=== PATIENT | male | born 1965 | race Caucasian/White ===

== ENCOUNTER → 2025-02-12 | Outpatient (CLI) | payer OTHER | LOC: M RAD 09:45 | PROVIDERS: ATTEND Nurse Practitioner | DX: R79.89 Other specified abnormal findings of blood chemistry (principal) ==

== ENCOUNTER 2025-04-09 14:21 | Observation (INO) | payer OTHER ==
[~2025-04-09] VITALS: Ht 165.1 cm; Wt 60.0 kg
[2025-04-09] MEDS: ONDANSETRON 4MG/2ML VIAL IV ONE (15:11)
[2025-04-09] MEDS: NS (Normal Saline) 0.9% 1,000 ML IV SCH ×2 (15:11→18:18)
[2025-04-09 15:26] LABS: BASO # 0.0 10^3/uL (0.0-0.2); BASO % 0.3 % (0.0-1.0); EOS # 0.0 10^3/uL (0.0-0.5); EOS % 0.4 % (0.0-3.0); LYMPH # 0.5 10^3/uL (1.5-5.0); LYMPH % 5.0 % (24.0-44.0); MONO # 0.3 10^3/uL (0.0-0.8); MONO % 3.6 % (2.0-8.0); NEUTROPHILS # 8.4 10^3/uL (1.5-8.5); NEUTROPHILS % 90.2 % (36.0-66.0); PLATELET COUNT, AUTOMATED 229 10^3/uL (150-450)
[2025-04-09 15:40] LABS: ALT/SGPT 52 U/L (7.0-40); AST/SGOT 56 U/L (<34); CALCIUM LEVEL 9.1 MG/DL (8.5-10.1); CARBON DIOXIDE LEVEL 20 MMOL/L (20-31); CHLORIDE LEVEL 90 MMOL/L (98-107); CREATININE FOR GFR 0.94 MG/DL (0.70-1.30); GLOMERULAR FILTRATION RATE > 90.0 (>56); POTASSIUM SERUM 3.8 MMOL/L (3.5-5.1); SODIUM LEVEL 125 MMOL/L (136-145)
[2025-04-09 15:51] LABS: OSMOLALITY SERUM 262 MOSM/KG (275-295)
[2025-04-09] MEDS ORDERED: ISOVUE-370 76% 100 ML VIAL As Ordered ONE (15:52)
[2025-04-09 16:06] LABS: FREE T4 1.20 NG/DL (0.89-1.76)
[2025-04-09 17:08] LABS: SODIUM,RANDOM URINE 77.0 MMOL/L
[2025-04-09] MEDS ORDERED: MOM 30 ML SUSPENSION UDC PO PRN (17:40)
[2025-04-09] MEDS ORDERED: ACETAMINOPHEN 325 MG TAB PO PRN (17:40)
[2025-04-09] MEDS ORDERED: ONDANSETRON 4MG/2ML VIAL IV PRN (17:50)
[2025-04-09 18:06] LABS: APPEARANCE, URINE CLEAR (CLEAR); BACTERIA, URINE AUTO NEGATIVE (NEGATIVE); BILIRUBIN, URINE AUTO NEGATIVE (NEGATIVE); BLOOD, URINE BLOOD NEGATIVE (NEGATIVE); GLUCOSE, URINE (UA) AUTO NEGATIVE (NEGATIVE); KETONE, URINE AUTO TRACE mg/dL (NEGATIVE); LEUKOCYTE ESTERASE, URINE AUTO NEGATIVE (NEGATIVE); MUCUS, URINE SMALL (NEGATIVE); NITRITE, URINE AUTO NEGATIVE (NEGATIVE); PROTEIN, URINE AUTO NEGATIVE (NEGATIVE); RBC, URINE AUTO 1 /HPF (0-3); SPECIFIC GRAVITY URINE AUTO 1.021 (1.002-1.035); SQUAMOUS EPITHELIAL CELL UR AU 0 /HPF (0-6); UROBILINOGEN, URINE AUTO 2.0 mg/dL (0.0-2.0); WBC, URINE AUTO 1 /HPF (0-3)
[2025-04-09] MEDS ORDERED: CYCL-707 PO (18:25)
[2025-04-09] MEDS ORDERED: PANT20TA6 PO (18:25)
[2025-04-09] MEDS ORDERED: ONDA-282 PO (18:25)
[2025-04-09] MEDS ORDERED: AMOX875T2 (18:25)
[2025-04-09] MEDS ORDERED: ATOR1TAB19 PO (18:25)
[2025-04-09] MEDS ORDERED: ATEN50TA2 PO (18:25)
[2025-04-09] MEDS ORDERED: LEVOTAB10 PO (18:25)
[2025-04-09] MEDS ORDERED: HOME MED LIST COMPLETE! XX SCH (18:30)
[2025-04-09] MEDS ORDERED: LEVALBUTEROL 1.25 MG 0.5ML CONCENTRATE NEB INH PRN (18:40)
[2025-04-09] MEDS: DOCUSATE SODIUM 100 MG CAPSULE PO SCH (21:00)
[2025-04-09 21:05] VITALS: BP 148/100; TEMP 97.7; O2SAT 98
[2025-04-09 21:29] LABS: INR 1.03
[2025-04-09 21:30] LABS: CALCIUM LEVEL 7.8 MG/DL (8.5-10.1); CARBON DIOXIDE LEVEL 18 MMOL/L (20-31); CHLORIDE LEVEL 95 MMOL/L (98-107); CREATININE FOR GFR 0.89 MG/DL (0.70-1.30); GLOMERULAR FILTRATION RATE > 90.0 (>56); POTASSIUM SERUM 3.9 MMOL/L (3.5-5.1); SODIUM LEVEL 127 MMOL/L (136-145)
[2025-04-09] MEDS: THIAMINE 100 MG TAB PO SCH (21:32)
[2025-04-09 23:52] VITALS: BP 136/81; TEMP 97.5; O2SAT 95
[2025-04-10 02:05] LABS: CALCIUM LEVEL 8.2 MG/DL (8.5-10.1); CARBON DIOXIDE LEVEL 22 MMOL/L (20-31); CHLORIDE LEVEL 93 MMOL/L (98-107); CREATININE FOR GFR 0.94 MG/DL (0.70-1.30); GLOMERULAR FILTRATION RATE > 90.0 (>56); POTASSIUM SERUM 3.8 MMOL/L (3.5-5.1); SODIUM LEVEL 126 MMOL/L (136-145)
[2025-04-10 04:13] VITALS: BP 149/89; TEMP 98.3; O2SAT 99
[2025-04-10 06:01] LABS: BASO # 0.0 10^3/uL (0.0-0.2); BASO % 0.5 % (0.0-1.0); EOS # 0.1 10^3/uL (0.0-0.5); EOS % 2.3 % (0.0-3.0); LYMPH # 0.8 10^3/uL (1.5-5.0); LYMPH % 12.4 % (24.0-44.0); MONO # 0.3 10^3/uL (0.0-0.8); MONO % 5.3 % (2.0-8.0); NEUTROPHILS # 4.8 10^3/uL (1.5-8.5); NEUTROPHILS % 79.0 % (36.0-66.0); PLATELET COUNT, AUTOMATED 195 10^3/uL (150-450)
[2025-04-10 06:18] LABS: ALT/SGPT 35 U/L (7.0-40); AST/SGOT 36 U/L (<34); CALCIUM LEVEL 7.9 MG/DL (8.5-10.1); CARBON DIOXIDE LEVEL 22 MMOL/L (20-31); CHLORIDE LEVEL 95 MMOL/L (98-107); CREATININE FOR GFR 0.93 MG/DL (0.70-1.30); GLOMERULAR FILTRATION RATE > 90.0 (>56); MAGNESIUM LEVEL 1.4 MG/DL (1.8-2.4); POTASSIUM SERUM 4.1 MMOL/L (3.5-5.1); SODIUM LEVEL 129 MMOL/L (136-145)
[2025-04-10] MEDS: MAG SULF 1GM/100ML (MAG RUN) 1 GM in IV 1 EA IV SCH ×2 (06:33→08:00)
[2025-04-10 07:36] VITALS: BP 136/88; TEMP 97.1; O2SAT 98
[2025-04-10] MEDS: FOLIC ACID 1 MG TAB PO SCH (10:05)
[2025-04-10] MEDS: MULTIVITAMINS/MINERALS THERAP 1 TAB PO SCH (10:06)
[2025-04-10] MEDS: ASPIRIN 81 MG CHEWABLE TABLET PO SCH (10:06)
[2025-04-10] MEDS: ATORVASTATIN 10 MG TAB PO SCH (10:06)
[2025-04-10] MEDS: PANTOPRAZOLE 40MG VIAL IV SCH (10:07)
[2025-04-10] MEDS: ENOXAPARIN 40 MG/0.4 ML SYRINGE (J1650 PER 10MG) SC SCH (10:07)
[2025-04-10 11:27] VITALS: BP 141/96; TEMP 97.3; O2SAT 100
[2025-04-10 13:40] LABS: CALCIUM LEVEL 8.5 MG/DL (8.5-10.1); CARBON DIOXIDE LEVEL 23 MMOL/L (20-31); CHLORIDE LEVEL 92 MMOL/L (98-107); CREATININE FOR GFR 0.87 MG/DL (0.70-1.30); GLOMERULAR FILTRATION RATE > 90.0 (>56); POTASSIUM SERUM 3.9 MMOL/L (3.5-5.1); SODIUM LEVEL 125 MMOL/L (136-145)
[2025-04-10 18:01] LABS: SODIUM,RANDOM URINE 115.0 MMOL/L
[2025-04-10 18:36] LABS: CALCIUM LEVEL 8.6 MG/DL (8.5-10.1); CARBON DIOXIDE LEVEL 22 MMOL/L (20-31); CHLORIDE LEVEL 92 MMOL/L (98-107); CREATININE FOR GFR 0.86 MG/DL (0.70-1.30); GLOMERULAR FILTRATION RATE > 90.0 (>56); POTASSIUM SERUM 3.8 MMOL/L (3.5-5.1); SODIUM LEVEL 125 MMOL/L (136-145)
[2025-04-10 20:27] VITALS: BP 168/97; TEMP 97.3; O2SAT 100
[2025-04-11] VITALS: BP 162/96; TEMP 97.7; O2SAT 99
[2025-04-11 01:15] LABS: CALCIUM LEVEL 7.8 MG/DL (8.5-10.1); CARBON DIOXIDE LEVEL 25 MMOL/L (20-31); CHLORIDE LEVEL 96 MMOL/L (98-107); CREATININE FOR GFR 0.88 MG/DL (0.70-1.30); GLOMERULAR FILTRATION RATE > 90.0 (>56); POTASSIUM SERUM 3.9 MMOL/L (3.5-5.1); SODIUM LEVEL 129 MMOL/L (136-145)
[2025-04-11 04:00] VITALS: BP 138/86; TEMP 98.5; O2SAT 98
[2025-04-11 06:03] LABS: BASO # 0.0 10^3/uL (0.0-0.2); BASO % 0.7 % (0.0-1.0); EOS # 0.3 10^3/uL (0.0-0.5); EOS % 5.8 % (0.0-3.0); LYMPH # 1.1 10^3/uL (1.5-5.0); LYMPH % 26.2 % (24.0-44.0); MONO # 0.4 10^3/uL (0.0-0.8); MONO % 9.3 % (2.0-8.0); NEUTROPHILS # 2.5 10^3/uL (1.5-8.5); NEUTROPHILS % 57.5 % (36.0-66.0); PLATELET COUNT, AUTOMATED 202 10^3/uL (150-450)
[2025-04-11 06:15] LABS: ALT/SGPT 36 U/L (7.0-40); AST/SGOT 39 U/L (<34); CALCIUM LEVEL 8.0 MG/DL (8.5-10.1); CARBON DIOXIDE LEVEL 25 MMOL/L (20-31); CHLORIDE LEVEL 96 MMOL/L (98-107); CREATININE FOR GFR 0.89 MG/DL (0.70-1.30); GLOMERULAR FILTRATION RATE > 90.0 (>56); MAGNESIUM LEVEL 1.8 MG/DL (1.8-2.4); POTASSIUM SERUM 3.7 MMOL/L (3.5-5.1); SODIUM LEVEL 130 MMOL/L (136-145)
[2025-04-11 08:23] VITALS: BP 120/92; TEMP 98.1; O2SAT 97
[2025-04-11] MEDS: FUROSEMIDE 20 MG TAB PO SCH (10:07)
[2025-04-11] MEDS: SODIUM CHLORIDE 1 GM TAB PO SCH (10:07)
[2025-04-11 11:08] LABS: CALCIUM LEVEL 8.7 MG/DL (8.5-10.1); CARBON DIOXIDE LEVEL 25 MMOL/L (20-31); CHLORIDE LEVEL 91 MMOL/L (98-107); CREATININE FOR GFR 0.88 MG/DL (0.70-1.30); GLOMERULAR FILTRATION RATE > 90.0 (>56); POTASSIUM SERUM 3.9 MMOL/L (3.5-5.1); SODIUM LEVEL 126 MMOL/L (136-145)
[2025-04-11 12:39] VITALS: BP 128/89; TEMP 98.5; O2SAT 97
[2025-04-11 15:40] LABS: CALCIUM LEVEL 8.7 MG/DL (8.5-10.1); CARBON DIOXIDE LEVEL 25 MMOL/L (20-31); CHLORIDE LEVEL 93 MMOL/L (98-107); CREATININE FOR GFR 0.90 MG/DL (0.70-1.30); GLOMERULAR FILTRATION RATE > 90.0 (>56); POTASSIUM SERUM 4.1 MMOL/L (3.5-5.1); SODIUM LEVEL 127 MMOL/L (136-145)
[2025-04-11 16:38] VITALS: TEMP 98.3; O2SAT 97
[2025-04-11 19:58] VITALS: BP 145/88; TEMP 97.1; O2SAT 100
[2025-04-11] MEDS: CYCLOBENZAPRINE 10 MG TABLET PO PRN (20:09)
[2025-04-12 00:24] VITALS: BP 149/86; TEMP 98.1; O2SAT 99
[2025-04-12 03:50] VITALS: BP 130/81; TEMP 97.4; O2SAT 99
[2025-04-12 05:56] LABS: BASO # 0.0 10^3/uL (0.0-0.2); BASO % 1.0 % (0.0-1.0); EOS # 0.2 10^3/uL (0.0-0.5); EOS % 5.7 % (0.0-3.0); LYMPH # 1.3 10^3/uL (1.5-5.0); LYMPH % 32.6 % (24.0-44.0); MONO # 0.5 10^3/uL (0.0-0.8); MONO % 13.2 % (2.0-8.0); NEUTROPHILS # 1.8 10^3/uL (1.5-8.5); NEUTROPHILS % 47.2 % (36.0-66.0); PLATELET COUNT, AUTOMATED 230 10^3/uL (150-450)
[2025-04-12 06:31] LABS: ALT/SGPT 41 U/L (7.0-40); AST/SGOT 48 U/L (<34); CALCIUM LEVEL 8.4 MG/DL (8.5-10.1); CARBON DIOXIDE LEVEL 26 MMOL/L (20-31); CHLORIDE LEVEL 94 MMOL/L (98-107); CREATININE FOR GFR 0.91 MG/DL (0.70-1.30); GLOMERULAR FILTRATION RATE > 90.0 (>56); MAGNESIUM LEVEL 1.5 MG/DL (1.8-2.4); POTASSIUM SERUM 3.9 MMOL/L (3.5-5.1); SODIUM LEVEL 132 MMOL/L (136-145)
[2025-04-12 08:00] VITALS: BP 144/79; TEMP 98; O2SAT 98
[2025-04-12 08:34] VITALS: BP 130/81
[2025-04-12] MEDS: MAGNESIUM OXIDE 400 MG TAB PO SCH (08:35)
[2025-04-12] MEDS: MAG SULF 1GM/100ML (MAG RUN) 1 GM in IV 1 EA IV SCH (08:47)
[2025-04-12] MEDS ORDERED: MAGN400T33 PO (11:07)
[2025-04-12] MEDS ORDERED: SODI1TAB6 PO (11:07)
[2025-04-12] MEDS ORDERED: LASI20TA3 PO (11:11)
[2025-04-12 13:03] VITALS: BP 131/83
== END 2025-04-12 14:39 | disposition home or self-care (01) ==
LOC: M ED 14:21 → EDBD 14:21 → M ED INP 14:22 → M PCU 21:26
PROVIDERS: ADMIT Internal Medicine; ATTEND Internal Medicine
DX: E87.1 Hypo-osmolality and hyponatremia (principal); R74.01 Elevation of levels of liver transaminase levels; E80.6 Other disorders of bilirubin metabolism; F10.20 Alcohol dependence, uncomplicated; E83.42 Hypomagnesemia; R11.2 Nausea with vomiting, unspecified; R19.7 Diarrhea, unspecified; R53.81 Other malaise; R20.8 Other disturbances of skin sensation; M54.9 Dorsalgia, unspecified; M51.369 Other intervertebral disc degeneration, lumbar region without mention of lumbar back pain or lower extremity pain; G89.29 Other chronic pain; M48.02 Spinal stenosis, cervical region; I25.10 Atherosclerotic heart disease of native coronary artery without angina pectoris; I69.354 Hemiplegia and hemiparesis following cerebral infarction affecting left non-dominant side; I25.84 Coronary atherosclerosis due to calcified coronary lesion; I10 Essential (primary) hypertension; E78.5 Hyperlipidemia, unspecified; J43.9 Emphysema, unspecified; E02 Subclinical iodine-deficiency hypothyroidism; J30.9 Allergic rhinitis, unspecified; Z86.69 Personal history of other diseases of the nervous system and sense organs; K08.9 Disorder of teeth and supporting structures, unspecified; K21.9 Gastro-esophageal reflux disease without esophagitis; Z80.0 Family history of malignant neoplasm of digestive organs; Z82.49 Family history of ischemic heart disease and other diseases of the circulatory system; Z79.899 Other long term (current) drug therapy
CPT/HCPCS: 36415; 74177; 80048; 80053; 80076; 81001; 82570; 83690; 83735; 83930; 83935; 84133; 84300; 84439; 84443; 84550; 85025; 85610; 87507; 93041; 96361; 96365; 96366; 96372; 96375; 96376; 99285; J1650; J2405; J2470; J3475; Q9967